=== PATIENT | female | born 1985 | race Caucasian/White ===

== ENCOUNTER 2017-04-21 19:42 | Emergency (ER) | payer BC ==
[2017-04-21] MEDS ORDERED: Ondansetron 4 MG/2 ML SDV IVPUSH ONE (20:17)
[2017-04-21] MEDS ORDERED: Sodium Chloride 0.9% 1,000 ML IV SCH (20:30)
--- NOTE | 2017-04-21 22:40 | ER ---
DATE SEEN: 04/21/2017 CHIEF COMPLAINT: Vomiting. HISTORY OF PRESENT ILLNESS: This is a 31-year-old female brought in because of vomiting, unable to keep anything down since this morning. She has also had loose stools about 7 of them since this morning associated with abdominal pain and back pain and weakness. REVIEW OF SYSTEMS: No fever or chills. No blood in the stool. No urinary symptoms. PAST MEDICAL HISTORY: Currently breast-feeding. ALLERGIES: No known allergies. PHYSICAL EXAMINATION: GENERAL: Sick appearing and moderately ill. VITAL SIGNS: Normal vital signs. ABDOMEN: Soft and scaphoid. No tenderness. CHEST: Clear. EXTREMITIES: No edema. SKIN: No pallor or jaundice. LABORATORY DATA: White cell count was normal, hemoglobin is 15.8, and neutrophils 86%. Electrolytes showed a sodium of 135, CO2 of 20, and BUN and creatinine ratio was 21. IMPRESSION: Dehydration. PLAN: 1 L of normal saline, Zofran 8 mg IV. May use Imodium p.r.n. and drink lots of fluids. Return tomorrow to the clinic. TIME SEEN: 2030 hours. /[id number] KRANTHI/LAURENL
== END 2017-04-21 22:28 | disposition home or self-care (01) ==
LOC: FB.ED 19:42
DX: E86.0 Dehydration (principal)
CPT/HCPCS: 36415; 80048; 85025; 96361; 96374; 99283; J2405; J7040

== ENCOUNTER 2021-08-17 19:22 | Emergency (ER) | payer BC | END 2021-08-17 20:18 | disposition home or self-care (01) | LOC: FB.ED 19:22 | DX: R10.9 Unspecified abdominal pain (principal) | CPT/HCPCS: 81001; 99282; 99284 ==